=== PATIENT | male | born 1980 | race Caucasian/White ===

== ENCOUNTER 2016-09-29 22:23 | Emergency (ER) | payer OTHER ==
[2016-09-30] MEDS ORDERED: HYDROCODONE/ACETAMINOPHEN 5/325MG TABLET ONE (00:05)
== END 2016-09-30 00:13 | disposition home or self-care (01) ==
LOC: ED 22:23
DX: J40 Bronchitis, not specified as acute or chronic (principal)
CPT/HCPCS: 99283 ×2; A9270